=== PATIENT | female | born 1985 | race Caucasian/White ===

== ENCOUNTER → 2019-04-18 | Outpatient (REF) | payer OTHER ==
[2019-04-18 17:54] LABS: FREE T4 1.17 NG/DL (0.76-1.46); THYROID STIMULATING HORMONE 3.95 uIU/ML (0.358-3.740)
== END ==
LOC: M LABDRAW1 16:53
PROVIDERS: ATTEND Nurse Practitioner Family
DX: E06.3 Autoimmune thyroiditis (principal)

== ENCOUNTER → 2019-11-26 | Outpatient (REF) | payer OTHER | LOC: M LAB REF 12:43 | PROVIDERS: ATTEND Physician Assistant | DX: J00 Acute nasopharyngitis [common cold] (principal) ==

== ENCOUNTER → 2020-04-27 | Outpatient (CLI) | payer OTHER ==
[2020-04-27 18:23] LABS: FREE T4 1.03 NG/DL (0.76-1.46); THYROID STIMULATING HORMONE 3.59 uIU/ML (0.358-3.740)
== END ==
LOC: M PLALAB 14:52
PROVIDERS: ATTEND Nurse Practitioner Family
DX: E06.3 Autoimmune thyroiditis (principal)

== ENCOUNTER 2020-09-17 13:53 | Day surgery (SDC) | payer BC, OTHER ==
[~2020-09-17] VITALS: Ht 162.6 cm; Wt 104.2 kg
[~2020-09-17 13:53] MED LIST: AZEL1SPR3 NARES; FLUTISP; GABA-282 PO; SYNT150T PO
[2020-09-17] MEDS ORDERED: propofoL 200 MG/20 ML VIAL As Ordered ONE ×2 (14:28→15:58)
[2020-09-17] MEDS ORDERED: LIDOCAINE 2% 100MG/5ML SDV (FOR ANES.) As Ordered ONE (14:28)
[2020-09-17] MEDS ORDERED: NS 1,000 ML IV ONE (14:55)
[2020-09-17] MEDS ORDERED: fentaNYL 100 MCG/2 ML INJECTION (J3010) As Ordered ONE (15:46)
--- NOTE | 2020-09-17 16:16 | ROOR ---
Patient Name: Kristan Bird Procedure Date: 09/17/2020 3:44 PM Date of : 1985 Age: 34 Room: [facility] Gender: Female Note Status: Finalized Procedure: Upper GI endoscopy Indications: Oropharyngeal phase dysphagia, Suspected stenosis of the esophagus, Abnormal cine-esophagram showing a distal esophageal schatzki ring. Providers: Romel Ortega MD Referring MD: STEFAN CAMARENA DO Requesting Provider: Medicines: Monitored Anesthesia Care Complications: No immediate complications. Procedure: Pre-Anesthesia Assessment: - The heart rate, respiratory rate, oxygen saturations, blood pressure, adequacy of pulmonary ventilation, and response to care were monitored throughout the procedure. The Endoscope was introduced through the mouth, and advanced to the second part of duodenum. The upper GI endoscopy was accomplished without difficulty. The patient tolerated the procedure well. Findings: Moderately severe esophagitis was found at the gastroesophageal junction. Biopsies were taken with a cold forceps for histology. No endoscopic abnormality was evident in the esophagus to explain the patient's complaint of dysphagia. It was decided, however, to proceed with dilation of the middle third of the esophagus and of the lower third of the esophagus. A TTS dilator was passed through the scope. Dilation with an 18-19-20 mm balloon dilator was performed to 20 mm. The dilation site was examined and showed no change. No endoscopic abnormality was evident in the esophagus to explain the patient's complaint of dysphagia. This was biopsied with a cold forceps for evaluation of eosinophilic esophagitis. Small Hiatal Hernia. The entire examined stomach was normal. The examined duodenum was normal. Impression: - Mild to moderate reflux esophagitis at GE junction. Biopsied. - No definite endoscopic esophageal abnormality to explain patient's dysphagia/regurgitation. (I do not appreciate any stenosis/schatzki ring). The mid and distal esophagus was dilated wit a TTS balloon dilator to the full 20 mm. The esophagus was then biopsied to r/o eosinophilic esophagitis. - Small Hiatal Hernia. - Normal stomach. - Normal examined duodenum. Recommendation: - Use Prilosec (omeprazole) 40 mg PO daily for 3 months. - (the script was sent to your pharmacy on file) - Telephone endoscopist for pathology results in 2 weeks. - (Your swallowing difficulty is most likely related to acid reflux. You should take your reflux meds every day.) Procedure Code(s): --- Professional --- 56659, Esophagogastroduodenoscopy, flexible, transoral; with transendoscopic balloon dilation of esophagus (less than 30 mm diameter) 45308, 59, Esophagogastroduodenoscopy, flexible, transoral; with biopsy, single or multiple Diagnosis Code(s): --- Professional --- R93.3, Abnormal findings on diagnostic imaging of other parts of digestive tract R13.12, Dysphagia, oropharyngeal phase K21.0, Gastro-esophageal reflux disease with esophagitis CPT copyright 2019 [employer]. All rights reserved. The codes documented in this report are preliminary and upon windmill mechanic review may be revised to meet current compliance requirements. Romel Ortega MD Romel Ortega MD 09/17/2020 4:16:27 PM Electronically signed by Romel Ortega MD Number of Addenda: 0 Note Initiated On: 09/17/2020 3:44 PM Estimated Blood Loss: Estimated blood loss: none.
[2020-09-17 16:34] VITALS: BP 139/87
== END 2020-09-17 16:43 | disposition home or self-care (01) ==
LOC: M OPP 13:53
PROVIDERS: ATTEND Internal Medicine Gastroenterology
DX: K44.9 Diaphragmatic hernia without obstruction or gangrene (principal); K21.9 Gastro-esophageal reflux disease without esophagitis; R13.12 Dysphagia, oropharyngeal phase; R93.3 Abnormal findings on diagnostic imaging of other parts of digestive tract; Z80.1 Family history of malignant neoplasm of trachea, bronchus and lung; Z79.899 Other long term (current) drug therapy; Z88.5 Allergy status to narcotic agent; Z88.8 Allergy status to other drugs, medicaments and biological substances
CPT/HCPCS: 43239; 43249; 88305; J3010

== ENCOUNTER 2024-07-12 07:41 | Emergency (ER) | payer BC, OTHER ==
[~2024-07-12] VITALS: Ht 162.6 cm; Wt 108.6 kg
[~2024-07-12 07:41] MED LIST changes: +GABA-1172 PO; -GABA-282 PO
[2024-07-12 08:08] VITALS: TEMP 98.4
[2024-07-12 10:46] VITALS: BP 118/63; O2SAT 98
== END 2024-07-12 10:46 | disposition home or self-care (01) ==
LOC: M ED 07:41
DX: M54.14 Radiculopathy, thoracic region (principal); Z88.5 Allergy status to narcotic agent; Z79.899 Other long term (current) drug therapy